=== PATIENT | female | born 1990 | race Caucasian/White ===

== ENCOUNTER 2021-08-10 12:26 | Day surgery (SDC) | payer MEDICAID, SELFPAY ==
[2021-08-10] MEDS ORDERED: hydrALAZINE 20 MG/ML VIAL SLOW IVP PRN (12:39)
[2021-08-10 13:02] LABS: Bilirubin Neg (Negative); Blood, Urine Negative (Negative); Clarity Clear (Clear); Glucose, Urine (Dipstick) Normal (Negative); Ketone, Urine Negative (Negative); Leukocyte Negative (Negative); Nitrite Negative (Negative); Protein, Urine (Dipstick) Negative (Neg-Trace); Specific Gravity, Urine 1.005 (1.002-1.036); Urobilinogen Normal mg/dL (Less than 2)
[2021-08-10 13:05] LABS: Urine Culture Reflex No No
[2021-08-10 13:07] LABS: Bacteria/HPF None Seen HPF (None Seen); RBC/HPF 0-3 HPF (0-3); Squamous Epithelial 0-3 HPF (0-3); WBC/HPF 0-3 HPF (0-3)
== END 2021-08-10 13:25 | disposition home health service (06) ==
LOC: CSHLD/OP 12:26
PROVIDERS: ATTEND Obstetrics & Gynecology
DX: O99.891 Other specified diseases and conditions complicating pregnancy (principal); R10.2 Pelvic and perineal pain; O09.33 Supervision of pregnancy with insufficient antenatal care, third trimester; Z3A.29 29 weeks gestation of pregnancy; Z87.440 Personal history of urinary (tract) infections; Z87.891 Personal history of nicotine dependence; Z88.0 Allergy status to penicillin; Z88.5 Allergy status to narcotic agent
CPT/HCPCS: 51701; 81001; 99282

== ENCOUNTER 2021-09-14 14:27 | Day surgery (SDC) | payer MEDICAID, OTHER ==
[2021-09-14 15:14] VITALS: BMI 25.7
[2021-09-14] MEDS ORDERED: hydrALAZINE 20 MG/ML VIAL SLOW IVP PRN (15:31)
[2021-09-14 16:12] LABS: Bilirubin Neg (Negative); Blood, Urine Negative (Negative); Clarity Clear (Clear); Glucose, Urine (Dipstick) Normal (Negative); Ketone, Urine 15 mg/dL (Negative); Leukocyte 25 (Negative); Nitrite Negative (Negative); Protein, Urine (Dipstick) Negative (Neg-Trace); Specific Gravity, Urine 1.005 (1.002-1.036); Urobilinogen Normal mg/dL (Less than 2)
[2021-09-14 16:24] LABS: Bacteria/HPF Rare-Few HPF (None Seen); RBC/HPF None Seen HPF (0-3); Squamous Epithelial 0-3 HPF (0-3); WBC/HPF 0-3 HPF (0-3)
[2021-09-14 16:29] LABS: #Eosinphils 0.1 10x3/uL (0.0-0.5); #Monocytes 0.7 10x3/uL (0.0-1.1); #Neutrophils 5.3 10x3/uL (1.5-8.4); %Basophils 0.2 % (0.0-2.0); %Eosinophils 1.1 % (0.0-6.0); %Lymphocytes 25.7 % (18.0-47.0); %Monocytes 8.7 % (0.0-10.0); %Neutrophils 63.8 % (40.0-75.0); Mean Corpuscular HGB CONC 33.1 g/dL (32.0-36.0); Mean Corpuscular Hemoglobin 31.4 pg (27.0-33.0); Mean Platelet Volume 10.7 fl (7.4-10.4); Platelet Count 238 10x3/uL (150-450); RBC Distribution Width 12.1 % (11.5-14.5); Red Blood Cell (RBC) Count 3.18 10x6/uL (3.90-5.03); White Blood Cell (WBC) Count 8.3 10x3/uL (3.5-10.5)
[2021-09-14 16:32] LABS: Amphetamine Not Detected (NotDetected); Barbiturates Screen Not Detected (NotDetected); Benzodiazepine Screen Not Detected (NotDetected); Cocaine Metabolite Screen Not Detected (NotDetected); Methadone Not Detected (NotDetected); Methamphetamine Not Detected (NotDetected); Opiate Screen Not Detected (NotDetected); Oxycodone Screen Not Detected (NotDetected); Phencyclidine (PCP) Not Detected (NotDetected); THC/Cannabinoid Screen Detected (NotDetected); Tricyclic Screen Not Detected (NotDetected)
[2021-09-14 19:18] LABS: ALT (SGPT) 10 U/L (8-55); AST (SGOT) 16 U/L (5-34); Albumin 3.5 g/dL (3.5-5.0); Alkaline Phosphatase 145 U/L (40-110); Anion Gap 13 mmol/L (10-20); BUN (Urea Nitrogen) 8 mg/dL (7.0-18.7); Bilirubin, Total 0.3 mg/dL (0.2-1.2); Calc. Creatinine Clearance 98 mL/min (70-130); Calcium 10.5 mg/dL (7.8-10.44); Carbon Dioxide 24 mmol/L (22-29); Chloride 98 mmol/L (98-107); Globulin 2.9 g/dL (2.4-3.5); Glucose 96 mg/dL (70-105); Potassium 3.4 mmol/L (3.5-5.1); Protein, Total 6.4 g/dL (6.0-8.3); Sodium 132 mmol/L (136-145)
[2021-09-14 19:34] LABS: Creatinine, Urine 55.41 mg/dL (47-110); Protein, Urine Random Quant Less than 10 mg/dL (1-14)
== END 2021-09-14 20:15 | disposition home or self-care (01) ==
LOC: CSHLD/OP 14:27
PROVIDERS: ATTEND Obstetrics & Gynecology
DX: O99.891 Other specified diseases and conditions complicating pregnancy (principal); R10.11 Right upper quadrant pain; O09.33 Supervision of pregnancy with insufficient antenatal care, third trimester; Z3A.34 34 weeks gestation of pregnancy; Z88.0 Allergy status to penicillin; Z88.5 Allergy status to narcotic agent; Z91.018 Allergy to other foods
CPT/HCPCS: 76805; 80053; 80306; 81003; 81015; 82570; 84156; 85025; 99284

== ENCOUNTER 2021-10-02 20:04 | Day surgery (SDC) | payer OTHER ==
[2021-10-02] MEDS ORDERED: hydrALAZINE 20 MG/ML VIAL SLOW IVP PRN (21:03)
[2021-10-02 23:14] VITALS: BMI 26.7
[2021-10-02] MEDS ORDERED: diphenhydrAMINE 25 MG CAP PO SCH (23:15)
== END 2021-10-02 23:39 | disposition home or self-care (01) ==
LOC: CSHLD/OP 20:04
PROVIDERS: ATTEND Family Medicine
DX: O47.03 False labor before 37 completed weeks of gestation, third trimester (principal); O99.333 Smoking (tobacco) complicating pregnancy, third trimester; F17.290 Nicotine dependence, other tobacco product, uncomplicated; Z3A.36 36 weeks gestation of pregnancy; Z88.0 Allergy status to penicillin; Z88.5 Allergy status to narcotic agent; Z91.018 Allergy to other foods
CPT/HCPCS: 99283

== ENCOUNTER 2021-10-04 19:20 | Day surgery (SDC) | payer OTHER ==
[2021-10-04] MEDS ORDERED: hydrALAZINE 20 MG/ML VIAL SLOW IVP PRN (21:26)
[2021-10-04] MEDS ORDERED: Temazepam 15 MG CAP PO SCH (22:45)
[2021-10-04] MEDS ORDERED: Zolpidem Tartrate 5 MG TAB PO SCH (23:15)
== END 2021-10-04 23:35 | disposition home or self-care (01) ==
LOC: CSHLD/OP 19:20 → CSHLD 20:08 → UNDOADMIN 20:08 → CSHLD/OP 23:35
PROVIDERS: ATTEND Family Medicine
DX: O47.1 False labor at or after 37 completed weeks of gestation (principal); O99.343 Other mental disorders complicating pregnancy, third trimester; G47.00 Insomnia, unspecified; Z3A.37 37 weeks gestation of pregnancy; Z87.891 Personal history of nicotine dependence; Z88.0 Allergy status to penicillin; Z88.5 Allergy status to narcotic agent; Z91.018 Allergy to other foods

== ENCOUNTER 2021-10-12 13:14 | Observation (INO) | payer OTHER ==
[2021-10-12] MEDS ORDERED: hydrALAZINE 20 MG/ML VIAL SLOW IVP PRN (14:34)
[2021-10-12] MEDS ORDERED: Carboprost 250 MCG/ML AMP IM PRN (17:48)
[2021-10-12] MEDS ORDERED: Promethazine HCl 25 MG/ML VIAL IM PRN (17:48)
[2021-10-12] MEDS ORDERED: Ondansetron PF 4 MG/2 ML Vial IVP PRN (17:48)
[2021-10-12] MEDS ORDERED: Acetaminophen 500 MG TAB PO PRN (17:48)
[2021-10-12] MEDS ORDERED: Misoprostol 200 MCG TAB PR PRN (17:48)
[2021-10-12] MEDS ORDERED: Lidocaine 1% (PF) 30 ML VIAL SC PRN (17:48)
[2021-10-12] MEDS ORDERED: Methylergonovine 0.2 MG/ML VIAL IM PRN (17:48)
[2021-10-12] MEDS ORDERED: Ibuprofen 800 MG TAB PO PRN (17:48)
[2021-10-12] MEDS ORDERED: Lactated Ringer's 1,000 ML IV SCH (18:00)
[2021-10-12] MEDS ORDERED: Misoprostol 100 MCG TAB VAG SCH (18:00)
[2021-10-12] MEDS ORDERED: NS w/ Oxytocin 30 units 500 ML IV SCH ×2 (18:00)
[2021-10-12 19:11] LABS: Hemoglobin 10.4 g/dL (12.0-15.5); Mean Corpuscular Hemoglobin 30.8 pg (27.0-33.0); Mean Corpuscular Volume 93.2 fl (81.6-98.3); Mean Platelet Volume 11.2 fl (7.4-10.4); Platelet Count 233 10x3/uL (150-450); RBC Distribution Width 13.3 % (11.5-14.5); Red Blood Cell (RBC) Count 3.38 10x6/uL (3.90-5.03); White Blood Cell (WBC) Count 13.3 10x3/uL (3.5-10.5)
[2021-10-12 19:35] LABS: Hep B Surf Ag Non-Reactive S/CO (NonReactive); Syphilis Antibody Nonreactive (Nonreactive); Syphilis Antibody Index 0.09 S/CO (<1.00 Non-Reactive)
[2021-10-12 19:36] LABS: HBSAg Index 0.17 S/CO (0-0.99)
[2021-10-12] MEDS: Butorphanol Tartrate 1 MG/ML VIAL SLOW IVP PRN ×2 (20:39→22:15)
[2021-10-12 21:46] LABS: SARS-CoV-2 NAA Rapid Test Not Detected (NotDetected)
[2021-10-12] MEDS ORDERED: Zolpidem Tartrate 5 MG TAB PO SCH (23:45)
== END 2021-10-12 23:45 | disposition home or self-care (01) ==
LOC: CSHLD/OP 13:14 → INTOOBSV 17:48 → CSHLD 17:48
PROVIDERS: ADMIT Student in an Organized Health Care Education/Training Program; ATTEND Student in an Organized Health Care Education/Training Program
DX: O47.1 False labor at or after 37 completed weeks of gestation (principal); O09.33 Supervision of pregnancy with insufficient antenatal care, third trimester; O99.013 Anemia complicating pregnancy, third trimester; D50.9 Iron deficiency anemia, unspecified; O99.333 Smoking (tobacco) complicating pregnancy, third trimester; F17.290 Nicotine dependence, other tobacco product, uncomplicated; Z3A.38 38 weeks gestation of pregnancy; Z86.16 Personal history of COVID-19; Z88.0 Allergy status to penicillin; Z88.5 Allergy status to narcotic agent; Z91.018 Allergy to other foods; Z20.822 Contact with and (suspected) exposure to COVID-19
CPT/HCPCS: 36415; 36430; 74018; 80306; 82805; 85014; 85018; 85027; 86780; 86850; 86900; 86901; 87340; 88307; 99285; J0595; J1100; J1885; J2175; J2210; J2250; J2270; J2274; J2405; J2590; J2704; J3010; J3490; P9016; U0002

== ENCOUNTER 2021-10-13 12:48 | Inpatient (IN) | payer OTHER ==
[~2021-10-13 12:48] MED LIST: Bupivacaine/Epinephrine 0.25% 30 ML VIAL ONE
[2021-10-13 16:41] VITALS: BMI 27.3
[2021-10-13] MEDS ORDERED: Misoprostol 200 MCG TAB PR PRN (18:21)
[2021-10-13] MEDS ORDERED: Lidocaine 1% (PF) 30 ML VIAL SC PRN (18:21)
[2021-10-13] MEDS ORDERED: Ibuprofen 800 MG TAB PO PRN (18:21)
[2021-10-13] MEDS ORDERED: hydrALAZINE 20 MG/ML VIAL SLOW IVP PRN (18:21)
[2021-10-13] MEDS ORDERED: Methylergonovine 0.2 MG/ML VIAL IM PRN (18:21)
[2021-10-13] MEDS ORDERED: Carboprost 250 MCG/ML AMP IM PRN (18:21)
[2021-10-13] MEDS ORDERED: Acetaminophen 325 MG TAB PO PRN ×2 (18:23→20:12)
[2021-10-13] MEDS ORDERED: NS w/ Oxytocin 30 units 500 ML IV SCH (18:30)
[2021-10-13] MEDS ORDERED: Promethazine HCl 25 MG/ML VIAL IM PRN ×2 (18:30→20:12)
[2021-10-13] MEDS ORDERED: Ondansetron PF 4 MG/2 ML Vial IVP PRN ×2 (18:30→20:12)
[2021-10-13] MEDS ORDERED: Calcium Carbonate 500 MG ChewTAB PO PRN (20:10)
[2021-10-13] MEDS ORDERED: Lactated Ringer's 500 ML IV PRN (20:12)
[2021-10-13] MEDS ORDERED: diphenhydrAMINE 50 MG/ML VIAL IVP PRN (20:12)
[2021-10-13] MEDS ORDERED: Moisturizing Cream (Eucerin) 113 GM JAR TOP PRN (20:12)
[2021-10-13] MEDS ORDERED: ePHEDrine Sulfate 50 MG/10 ML VIAL SLOW IVP PRN (20:12)
[2021-10-13] MEDS ORDERED: Naloxone HCl 0.4 mg/ml Vial IVP PRN ×2 (20:12)
[2021-10-13] MEDS ORDERED: Fentanyl 2 mcg/Bupivacaine 0.1% Cassette 100 ML EPIDURAL SCH (20:15)
[2021-10-13] MEDS ORDERED: Communication Order-Pharmacy FS SCH (20:15)
[2021-10-13 22:13] LABS: Amphetamine Not Detected (NotDetected); Barbiturates Screen Not Detected (NotDetected); Benzodiazepine Screen Not Detected (NotDetected); Cocaine Metabolite Screen Not Detected (NotDetected); Methadone Not Detected (NotDetected); Methamphetamine Not Detected (NotDetected); Opiate Screen Not Detected (NotDetected); Oxycodone Screen Not Detected (NotDetected); Phencyclidine (PCP) Not Detected (NotDetected); THC/Cannabinoid Screen Detected (NotDetected); Tricyclic Screen Not Detected (NotDetected)
[2021-10-14] MEDS ORDERED: Succinylcholine 200 MG/10 ml SYRINGE FS ONE (00:34)
[2021-10-14] MEDS ORDERED: PROPOFOL 20 ML ONE (00:34)
[2021-10-14] MEDS ORDERED: ceFAZolin 2 GM/Dextrose 50 ML IVPB ONE (00:35)
[2021-10-14] MEDS ORDERED: Midazolam HCl 2 mg/2 ml Vial ONE (00:43)
[2021-10-14] MEDS ORDERED: PHENYLEPHRINE-NS 100 MCG/ML 10 ML SYRINGE ONE ×2 (00:43→01:26)
[2021-10-14] MEDS ORDERED: Oxytocin 10 UNITS/ML VIAL ONE ×2 (00:44→01:27)
[2021-10-14] MEDS ORDERED: Tranexamic Acid 1,000 MG/10 ML VIAL ONE (00:46)
[2021-10-14] MEDS ORDERED: Morphine PF 10 MG/10 ML VIAL ONE (00:47)
[2021-10-14] MEDS ORDERED: Misoprostol 200 MCG TAB ONE (00:53)
[2021-10-14] MEDS ORDERED: Ondansetron PF 4 MG/2 ML Vial ONE (00:56)
[2021-10-14] MEDS ORDERED: Dexamethasone 4 mg/ml Vial ONE (00:56)
[2021-10-14 01:01] LABS: RapidComm Collect By CBN
[2021-10-14 01:02] LABS: RapidComm Collect By CBN; pH (Cord, venous) 7.241 (7.250-7.350)
[2021-10-14] MEDS ORDERED: Ondansetron PF 4 MG/2 ML Vial IVP PRN ×2 (01:03→04:56)
[2021-10-14] MEDS ORDERED: Naloxone HCl 0.4 mg/ml Vial IVP PRN ×2 (01:03)
[2021-10-14] MEDS ORDERED: Meperidine HCl/PF 25 MG/ML VIAL SLOW IVP PRN (01:03)
[2021-10-14] MEDS ORDERED: Promethazine HCl 25 MG SUPP PR PRN (01:03)
[2021-10-14] MEDS ORDERED: Moisturizing Cream (Eucerin) 113 GM JAR TOP PRN (01:03)
[2021-10-14] MEDS ORDERED: Ondansetron HCl/PF 4 MG/2 ML Vial IVP PRN (01:03)
[2021-10-14] MEDS ORDERED: diphenhydrAMINE 50 MG/ML VIAL IVP PRN ×2 (01:03→04:56)
[2021-10-14] MEDS ORDERED: Promethazine HCl 25 MG/ML VIAL IM PRN ×2 (01:03→04:56)
[2021-10-14] MEDS ORDERED: L&D-Morphine 4 MG/ML VIAL SLOW IVP PRN (01:03)
[2021-10-14] MEDS ORDERED: Naloxone HCl 0.4 mg/ml Vial IV PRN ×2 (01:03→04:56)
[2021-10-14] MEDS ORDERED: Ketorolac Tromethamine 30 MG/ML VIAL IVP SCH (01:15)
[2021-10-14] MEDS ORDERED: Communication Order-Pharmacy FS SCH ×2 (01:15→05:00)
[2021-10-14] MEDS ORDERED: Boostrix 0.5 ML (Tdap) VIAL IM ONE (01:21)
[2021-10-14] MEDS ORDERED: Simethicone Chewable 80 MG TAB PO PRN (01:21)
[2021-10-14] MEDS ORDERED: Bisacodyl 10 MG SUPP PR PRN (01:21)
[2021-10-14] MEDS ORDERED: Zolpidem Tartrate 5 MG TAB PO PRN ×2 (01:21→04:56)
[2021-10-14] MEDS ORDERED: hydrALAZINE 20 MG/ML VIAL SLOW IVP PRN (01:21)
[2021-10-14] MEDS ORDERED: Meperidine HCl/PF 25 MG/ML VIAL ONE (01:56)
[2021-10-14] MEDS ORDERED: Morphine 4 MG/ML VIAL ONE (02:10)
[2021-10-14] MEDS: Fentanyl 100 MCG/2 ML VIAL SLOW IVP PRN ×3 (02:25→02:44)
[2021-10-14] MEDS ORDERED: Fentanyl 100 MCG/2 ML VIAL ONE (02:26)
[2021-10-14] MEDS ORDERED: Azithromycin 500 MG in Sodium Chloride 0.9% 250 ML 250 ML IVPB SCH (02:30)
[2021-10-14] MEDS: Ketorolac Tromethamine 30 MG/ML VIAL IVP PRN ×3 (03:06→23:54)
[2021-10-14] MEDS ORDERED: diphenhydrAMINE 50 MG/ML VIAL IM PRN (04:56)
[2021-10-14] MEDS ORDERED: diphenhydrAMINE 25 MG CAP PO PRN (04:56)
[2021-10-14] MEDS: fentaNYL Citrate/PF 1,000 MCG in Sodium Chloride 0.9% 30 ML IV PRN (05:31)
[2021-10-14] MEDS: Prenatal Vitamin 1 TAB PO SCH (08:21)
[2021-10-14] MEDS: Docusate 100 MG CAP PO SCH ×2 (08:21→20:50)
[2021-10-14] MEDS: Ferrous Sulfate 325 MG TAB PO SCH (08:21)
[2021-10-14] MEDS ORDERED: Ferrous Sulfate 325 MG TAB PO SCH (09:00)
[2021-10-15] MEDS: fentaNYL Citrate/PF 1,000 MCG in Sodium Chloride 0.9% 30 ML IV PRN (00:40)
[2021-10-15 03:19] LABS: Hemoglobin 6.7 g/dL (12.0-15.5); Mean Corpuscular HGB CONC 34.5 g/dL (32.0-36.0); Mean Corpuscular Hemoglobin 30.9 pg (27.0-33.0); Mean Corpuscular Volume 89.4 fl (81.6-98.3); Mean Platelet Volume 11.4 fl (7.4-10.4); Platelet Count 176 10x3/uL (150-450); RBC Distribution Width 13.9 % (11.5-14.5); Red Blood Cell (RBC) Count 2.17 10x6/uL (3.90-5.03); White Blood Cell (WBC) Count 16.4 10x3/uL (3.5-10.5)
[2021-10-15] MEDS ORDERED: Ibuprofen 800 MG TAB PO PRN ×2 (06:00→15:12)
[2021-10-15] MEDS: Prenatal Vitamin 1 TAB PO SCH (08:03)
[2021-10-15] MEDS: Docusate 100 MG CAP PO SCH ×2 (08:03→20:25)
[2021-10-15 12:22] LABS: Hemoglobin 7.7 g/dL (12.0-15.5)
[2021-10-15] MEDS ORDERED: HYDROcodone/Acetaminophen 10/325 mg Tablet PO PRN (15:10)
[2021-10-15] MEDS ORDERED: HYDROcodone/Acetaminophen 5/325 mg Tablet PO PRN (15:10)
[2021-10-15] MEDS: Ibuprofen 800 MG TAB PO SCH ×2 (15:44→23:53)
[2021-10-15] MEDS: HYDROcodone/Acetaminophen 5/325 mg Tablet PO PRN (20:25)
[2021-10-16 03:45] LABS: Hemoglobin 6.7 g/dL (12.0-15.5)
[2021-10-16] MEDS: HYDROcodone/Acetaminophen 5/325 mg Tablet PO PRN ×3 (04:14→19:33)
[2021-10-16] MEDS: Ferrous Sulfate 325 MG TAB PO SCH (09:14)
[2021-10-16] MEDS: Prenatal Vitamin 1 TAB PO SCH (09:14)
[2021-10-16] MEDS: Docusate 100 MG CAP PO SCH ×2 (09:14→21:53)
[2021-10-16 14:07] LABS: Hemoglobin 8.2 g/dL (12.0-15.5)
[2021-10-16] MEDS ORDERED: HYDROcodone/Acetaminophen 5/325 mg Tablet PO PRN (21:37)
[2021-10-16] MEDS ORDERED: HYDROcodone/Acetaminophen 5/325 mg Tablet PO SCH (21:45)
[2021-10-16] MEDS: Ibuprofen 800 MG TAB PO SCH (21:53)
[2021-10-17] MEDS: HYDROcodone/Acetaminophen 5/325 mg Tablet PO PRN ×3 (03:38→14:02)
[2021-10-17 04:00] LABS: Hemoglobin 7.8 g/dL (12.0-15.5)
[2021-10-17] MEDS: Ibuprofen 800 MG TAB PO SCH ×2 (05:42→13:51)
[2021-10-17 08:00] VITALS: BP 124/80; TEMP 97.9
[2021-10-17] MEDS: Prenatal Vitamin 1 TAB PO SCH (09:37)
[2021-10-17] MEDS: Docusate 100 MG CAP PO SCH (09:37)
[2021-10-17] MEDS ORDERED: Polyethylene Glycol 3350 17 GM Packet PO SCH (10:45)
[2021-10-17] MEDS ORDERED: Iron, Sodium Ferric Gluconate 250 MG in Sodium Chloride 0.9% 250 ML 250 ML IVPB SCH (11:30)
[2021-10-17] MEDS ORDERED: valACYclovir 500 MG TAB PO SCH ×2 (13:30→21:00)
[2021-10-17 14:19] LABS: Bilirubin Neg (Negative); Blood, Urine Negative (Negative); Glucose, Urine (Dipstick) Normal (Negative); Ketone, Urine Negative (Negative); Leukocyte Negative (Negative); Nitrite Negative (Negative); Protein, Urine (Dipstick) Negative (Neg-Trace); Specific Gravity, Urine 1.005 (1.002-1.036); Urobilinogen Normal mg/dL (Less than 2)
[2021-10-17 14:20] LABS: Clarity Clear (Clear)
[2021-10-17 14:21] LABS: Urine Culture Reflex No No
[2021-10-17 14:47] LABS: Bacteria/HPF None Seen HPF (None Seen); RBC/HPF 0-3 HPF (0-3); Squamous Epithelial 0-3 HPF (0-3); WBC/HPF 0-3 HPF (0-3)
[2021-10-18] MEDS ORDERED: Polyethylene Glycol 3350 17 GM Packet PO SCH (09:00)
== END 2021-10-17 15:50 | disposition home or self-care (01) | DRG 787 ==
LOC: CSHLD/OP 12:48 → CSHLD 20:08 → CSHPP 10-14 06:25
PROVIDERS: ADMIT Obstetrics & Gynecology; ATTEND Obstetrics & Gynecology
PROC: 10D00Z1 Extraction of Products of Conception, Low, Open Approach (ICD-10-PCS; principal; 2021-10-14)
PROC: 30233N1 Transfusion of Nonautologous Red Blood Cells into Peripheral Vein, Percutaneous Approach (ICD-10-PCS; 2021-10-14)
DX: O99.02 Anemia complicating childbirth (principal); O72.2 Delayed and secondary postpartum hemorrhage; O99.324 Drug use complicating childbirth; D50.9 Iron deficiency anemia, unspecified; Z37.0 Single live birth; Z3A.38 38 weeks gestation of pregnancy; O32.4XX0 Maternal care for high head at term, not applicable or unspecified; F32.9 Major depressive disorder, single episode, unspecified; F41.1 Generalized anxiety disorder; F43.10 Post-traumatic stress disorder, unspecified; R30.0 Dysuria; O99.893 Other specified diseases and conditions complicating puerperium; O76 Abnormality in fetal heart rate and rhythm complicating labor and delivery; O69.81X0 Labor and delivery complicated by cord around neck, without compression, not applicable or unspecified; F17.210 Nicotine dependence, cigarettes, uncomplicated; O99.334 Smoking (tobacco) complicating childbirth; O99.344 Other mental disorders complicating childbirth; Z88.0 Allergy status to penicillin; Z86.16 Personal history of COVID-19; Z79.899 Other long term (current) drug therapy; Z91.018 Allergy to other foods; Z88.8 Allergy status to other drugs, medicaments and biological substances; F12.10 Cannabis abuse, uncomplicated
CPT/HCPCS: 36415; 36430; 51702; 74018; 80306; 81001; 82805; 85014; 85018; 86850; 86900; 86901; 99285; J1100; J1885; J2175; J2210; J2250; J2270; J2274; J2405; J2590; J2704; J2916; J3010; J3490; J7050; P9016

== ENCOUNTER 2023-07-10 13:48 | Emergency (ER) | payer OTHER, SELFPAY | END 2023-07-10 14:55 | disposition home or self-care (01) | LOC: CSHERS 13:48 | DX: N61.0 Mastitis without abscess (principal); F17.290 Nicotine dependence, other tobacco product, uncomplicated | CPT/HCPCS: 99283 ==

== ENCOUNTER 2023-07-13 12:50 | Emergency (ER) | payer SELFPAY ==
[2023-07-13] MEDS ORDERED: Ketorolac Tromethamine 30 MG (1 mL) VIAL ONE (13:47)
[2023-07-13] MEDS ORDERED: Morphine 4 MG/ML VIAL ONE (13:47)
[2023-07-13] MEDS ORDERED: Ondansetron PF 4 MG/2 ML Vial ONE (13:47)
[2023-07-13 13:52] LABS: #Eosinphils 0.1 10x3/uL (0.0-0.5); #Monocytes 0.6 10x3/uL (0.0-1.1); #Neutrophils 4.3 10x3/uL (1.5-8.4); %Basophils 0.4 % (0.0-2.0); %Eosinophils 1.7 % (0.0-6.0); %Lymphocytes 27.7 % (18.0-47.0); %Monocytes 8.2 % (0.0-10.0); %Neutrophils 61.9 % (40.0-75.0); Hematocrit 38.9 % (34.9-44.5); Hemoglobin 12.9 g/dL (12.0-15.5); Mean Corpuscular HGB CONC 33.2 g/dL (32.0-36.0); Mean Corpuscular Hemoglobin 31.2 pg (27.0-33.0); Mean Platelet Volume 9.3 fl (7.4-10.4); Platelet Count 289 10x3/uL (150-450); RBC Distribution Width 12.4 % (11.5-14.5); Red Blood Cell (RBC) Count 4.14 10x6/uL (3.90-5.03); White Blood Cell (WBC) Count 6.9 10x3/uL (3.5-10.5)
[2023-07-13 14:01] LABS: ALT (SGPT) 16 U/L (8-55); AST (SGOT) 15 U/L (5-34); Alkaline Phosphatase 60 U/L (40-110); Anion Gap 12 mmol/L (10-20); BUN (Urea Nitrogen) 14 mg/dL (7.0-18.7); Bilirubin, Total 0.3 mg/dL (0.2-1.2); Calc. Creatinine Clearance 0 mL/min (70-130); Calcium 9.3 mg/dL (7.8-10.44); Carbon Dioxide 24 mmol/L (22-29); Chloride 107 mmol/L (98-107); Estimated GFR 93; Globulin 2.7 g/dL (2.4-3.5); Glucose 109 mg/dL (70-105); Potassium 3.9 mmol/L (3.5-5.1); Protein, Total 6.7 g/dL (6.0-8.3); Sodium 139 mmol/L (136-145)
== END 2023-07-13 15:44 | disposition home or self-care (01) ==
LOC: CSHERS 12:50
DX: N64.4 Mastodynia (principal); F17.290 Nicotine dependence, other tobacco product, uncomplicated
CPT/HCPCS: 36415; 80053; 83605; 85025; 96374; 96375; J1885; J2270; J2405